=== PATIENT | female | born 1995 | race Caucasian/White ===

== ENCOUNTER 2019-05-03 13:25 | Emergency (ER) | payer OTHER ==
[~2019-05-03] VITALS: Ht 170.2 cm; Wt 54.4 kg
--- NOTE | 2019-05-03 13:35 | NUR ---
came from urgent care c/o abd pain +N/V toradol 60mg given at urgent care and noted rash on the left arm after, PT AAOX4, -SOB, NAD NOTED, PLACED ON MONITOR, VSS, PENDING MD TRIPP
[2019-05-03] MEDS ORDERED: MORPHINE SULFATE INJ 2 MG/ML DISP.SYRIN IV ONE ×3 (14:00→15:30)
[2019-05-03] MEDS ORDERED: IV NS 0.9% 1,000 ML BAG IV ONE (14:00)
[2019-05-03] MEDS ORDERED: ONDANSETRON HCL/PF 4 MG/2 ML VIAL IVP ONE (14:00)
[2019-05-03] MEDS ORDERED: diphenhydrAMINE HCL 50 MG/ML VIAL IV ONE (14:00)
[2019-05-03] MEDS ORDERED: diphenhydrAMINE HCL 50 MG/ML VIAL ONE (14:11)
[2019-05-03] MEDS ORDERED: MORPHINE SULFATE INJ 4 MG/ML DISP.SYRIN ONE ×2 (14:12→15:10)
[2019-05-03] MEDS ORDERED: ONDANSETRON HCL/PF 4 MG/2 ML VIAL ONE (14:12)
[2019-05-03 14:15] LABS: BASOPHILS % (AUTO) 0.5 % (0.0-2.0); EOSINOPHILS % (AUTO) 1.5 % (0.0-6.0); HEMATOCRIT 41 % (33-45); LYMPHOCYTES # (AUTO) 1.8 /CMM (0.8-4.8); LYMPHOCYTES % (AUTO) 25.7 % (20.0-44.0); MEAN CORPUSCULAR HGB CONC 34 g/dl (31.0-36.0); MEAN CORPUSCULAR VOLUME 94 fL (82-100); MONOCYTES # (AUTO) 0.7 /CMM (0.1-1.30); MONOCYTES % (AUTO) 9.2 % (2.0-12.0); NEUTROPHILS # (AUTO) 4.5 /CMM (1.8-8.9); NEUTROPHILS % (AUTO) 63.1 % (43.0-81.0); PLATELET COUNT (AUTO) 199 /CMM (150-450); RED BLOOD CELL COUNT(AUTO) 4.33 MIL/uL (4.0-5.2); WHITE BLOOD COUNT (AUTO) 7.1 K/uL (4.3-11.0)
[2019-05-03 14:23] LABS: CALCIUM, SERUM 8.9 mg/dL (8.5-10.1); CREATININE 0.8 mg/dL (0.6-1.3)
[2019-05-03 14:29] LABS: BILIRUBIN,DIRECT 0.1 mg/dL (0.0-0.2); BILIRUBIN,TOTAL 0.5 mg/dL (0.2-1.0); TOTAL PROTEIN, SERUM 7.3 g/dL (6.4-8.2)
[2019-05-03 14:52] LABS: APPEARANCE,URINE Turbid (CLEAR); BILIRUBIN,URINE Negative (NEGATIVE); BLOOD, URINE Negative Ery/uL (NEGATIVE); COLOR,URINE Yellow (YELLOW); KETONES,URINE Negative (NEGATIVE); LEUKOCYTE ESTERASE ,URINE Negative (NEGATIVE); NITRITE, URINE Negative (NEGATIVE); PROTEIN,URINE 100 mg/dl (NEGATIVE); UGLUCOSE Negative (NEGATIVE); UROBILINOGEN,URINE 0.2 EU/dL (0.2)
[2019-05-03 14:53] LABS: PH,URINE >9.0 (5.0-8.0)
[2019-05-03 14:54] LABS: BACTERIA,URINE Few /HPF (None Seen); RBC,URINE 0-2 /HPF (0-2); SQUAMOUS EPITHELIAL CELL,UR Few /HPF (None Seen); WBC,URINE 0-2 /HPF (0-3)
--- NOTE | 2019-05-03 15:10 | NUR ---
PATIENT TO CT
[2019-05-03] MEDS ORDERED: IOHEXOL-300 100 ML VIAL IV ONE (15:15)
[2019-05-03] MEDS ORDERED: CT SWABBABLE VALVE TRANS SET 1 EA INFUS.SET MC ONE (15:15)
[2019-05-03] MEDS ORDERED: IV NS 0.9% 250 ML IV ONE (15:15)
[2019-05-03 15:30] VITALS: BP 110/79
--- NOTE | 2019-05-03 15:31 | NUR ---
MORPHINE 4MG IVP DUPLICATE ORDER, D/C BY ELIA ARAUJO
--- NOTE | 2019-05-03 16:30 | NUR ---
Patient discharged to home in stable condition. Written and verbal after care instructions given. Patient verbalizes understanding of instruction. IV removed. Catheter intact and site benign. Pressure and 4x4 applied to site. No bleeding noted.
== END 2019-05-03 16:30 | disposition home or self-care (01) ==
LOC: ER 13:25
DX: R10.31 Right lower quadrant pain (principal); R11.2 Nausea with vomiting, unspecified; G43.909 Migraine, unspecified, not intractable, without status migrainosus; F41.9 Anxiety disorder, unspecified
CPT/HCPCS: 36415; 74177; 80048; 80076; 81001; 83690; 84703; 85025; 96361; 96374; 96375; 96376; 99285; J1200; J2270 ×2; J2405; J7030; J7050; Q9967; 81000-TC

== ENCOUNTER 2021-01-25 14:05 | Emergency (ER) | payer SELFPAY ==
[~2021-01-25] VITALS: Ht 170.2 cm; Wt 54.4 kg
--- NOTE | 2021-01-25 15:55 | NUR ---
Called the patient in the [facility] to ER bed 16 c/o HEAVY MENSTRUAL BLEEDING x 2 days. According to patient she changed OB pad every hour. Resp is even and unlabored with no apparent distress noted. Skin is warm and dry. Placed on hospital gown. Awaiting md for eval.
--- NOTE | 2021-01-25 16:21 | NUR ---
SEEN AND EXAMINED BY MOR AVALOS
[2021-01-25] MEDS ORDERED: KETOROLAC TROMETHAMINE INJ 30 MG/ML VIAL IM ONE (16:30)
[2021-01-25 17:14] LABS: BASOPHILS % (AUTO) 0.6 % (0.0-2.0); EOSINOPHILS % (AUTO) 1.2 % (0.0-6.0); HEMATOCRIT 36 % (33-45); HEMOGLOBIN 12.7 g/dL (11.5-14.8); LYMPHOCYTES # (AUTO) 2.1 K/uL (0.8-4.8); LYMPHOCYTES % (AUTO) 34.9 % (20.0-44.0); MEAN CORPUSCULAR HGB CONC 35 g/dl (31.0-36.0); MEAN CORPUSCULAR VOLUME 92 fL (82-100); MONOCYTES # (AUTO) 0.3 K/uL (0.1-1.30); MONOCYTES % (AUTO) 5.8 % (2.0-12.0); NEUTROPHILS # (AUTO) 3.4 K/uL (1.8-8.9); NEUTROPHILS % (AUTO) 57.5 % (43.0-81.0); PLATELET COUNT (AUTO) 225 K/uL (150-450); RED BLOOD CELL COUNT(AUTO) 3.95 MIL/uL (4.0-5.2); WHITE BLOOD COUNT (AUTO) 5.9 K/uL (4.3-11.0)
[2021-01-25 17:25] LABS: CALCIUM, SERUM 8.5 mg/dL (8.5-10.1); CREATININE 0.8 mg/dL (0.6-1.3); POTASSIUM 3.1 mmol/L (3.5-5.1)
[2021-01-25] MEDS ORDERED: KETOROLAC TROMETHAMINE INJ 30 MG/ML VIAL ONE (17:25)
[2021-01-25 17:36] LABS: ALBUMIN 3.8 g/dL (3.4-5.0); BILIRUBIN,TOTAL 0.4 mg/dL (0.2-1.0); TOTAL PROTEIN, SERUM 7.2 g/dL (6.4-8.2)
[2021-01-25 18:16] LABS: BILIRUBIN,URINE Negative (NEGATIVE); COLOR,URINE YELLOW (YELLOW); LEUKOCYTE ESTERASE ,URINE Negative (NEGATIVE); NITRITE, URINE Negative (NEGATIVE); PROTEIN,URINE 30 mg/dl (NEGATIVE); UGLUCOSE Negative (NEGATIVE); UROBILINOGEN,URINE 0.2 EU/dL (0.2)
[2021-01-25 18:19] LABS: BACTERIA,URINE Rare /HPF (None Seen); PH,URINE >8.5 (5.0-8.0); SQUAMOUS EPITHELIAL CELL,UR Few /HPF (None Seen); WBC,URINE NONE SEEN /HPF (0-3)
[2021-01-25] MEDS ORDERED: IBUP-1955 PO (19:15)
[2021-01-25 19:33] VITALS: BP 134/70
--- NOTE | 2021-01-25 19:33 | NUR ---
Patient discharged to home in stable condition. Written and verbal after care instructions given. Patient verbalizes understanding of instruction. Pt ambulatory with a steady gait
== END 2021-01-25 19:34 | disposition home or self-care (01) ==
LOC: ER 14:05
DX: N92.0 Excessive and frequent menstruation with regular cycle (principal); G43.909 Migraine, unspecified, not intractable, without status migrainosus; F41.9 Anxiety disorder, unspecified
CPT/HCPCS: 36415; 76700; 76856; 80053; 81001; 83690; 84703; 85025; 96372; 99284; J1885

== ENCOUNTER 2022-07-04 07:18 | Emergency (ER) | payer SELFPAY ==
[~2022-07-04] VITALS: Ht 170.2 cm; Wt 49.4 kg
[~2022-07-04 07:18] MED LIST: IBUP-1955 PO
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
--- NOTE | 2022-07-04 07:43 | NUR ---
CALLED [employer] PROGRAM SUPPORT CLERK #[id number] UNIT WILL BE DISPATCHED. INCIDENT #[id number]
[2022-07-04] MEDS ORDERED: IBUP-1953 PO (07:54)
[2022-07-04] MEDS ORDERED: ACETAMINOPHEN ES 500 MG TABLET ONE (07:56)
[2022-07-04] MEDS ORDERED: TDAP [DIPH/PERTUSSIS/TET] 0.5 ML VIAL IM ONE ×2 (07:57→08:00)
[2022-07-04] MEDS ORDERED: ACETAMINOPHEN ES 500 MG TABLET PO ONE (08:00)
--- NOTE | 2022-07-04 08:02 | NUR ---
PT STATED SHE DOES NOT KNOW IF SHE RECEIVED TDAP WITHIN 5 YEAR, EXPLAINED WHAT IT IS FOR, PT DECLINED.
--- NOTE | 2022-07-04 08:08 | NUR ---
WAIVER SIGNED AND PLACED IN PT'S CHART
--- NOTE | 2022-07-04 08:11 | NUR ---
PT TAKEN TO CT VIA HERNANDEZ
--- NOTE | 2022-07-04 08:30 | NUR ---
[employer] AT BEDSIDE
[2022-07-04] MEDS ORDERED: CHLO473M3 PO (08:51)
[2022-07-04] MEDS ORDERED: KETOROLAC TROMETHAMINE 15 MG/ML VIAL ONE (08:51)
[2022-07-04] MEDS ORDERED: KETOROLAC TROMETHAMINE INJ 30 MG/ML VIAL IM ONE (09:00)
--- NOTE | 2022-07-04 09:01 | NUR ---
Patient discharged to home in stable condition. Written and verbal after care instructions given. Patient verbalizes understanding of instruction.
[2022-07-04 09:02] VITALS: BP 111/77
== END 2022-07-04 09:02 | disposition home or self-care (01) ==
LOC: ER 07:21
DX: S01.512A Laceration without foreign body of oral cavity, initial encounter (principal); S09.8XXA Other specified injuries of head, initial encounter; R68.84 Jaw pain; G43.909 Migraine, unspecified, not intractable, without status migrainosus; F41.9 Anxiety disorder, unspecified; Z79.899 Other long term (current) drug therapy; Y04.8XXA Assault by other bodily force, initial encounter; Y93.89 Activity, other specified; Y92.89 Other specified places as the place of occurrence of the external cause; Y99.8 Other external cause status
CPT/HCPCS: 99285; 72125; 96372; 70450; 70486; J1885; 90715